=== PATIENT | female | born 1955 | race Hispanic/Latino ===

== ENCOUNTER → 2019-07-08 | Day surgery (SDC) | payer OTHER ==
[~2019-07-08] MED LIST: COLACE100 MG PO; FENTANYL CITRATE/PF 100MCG/2 ML INJ ONE; GLUCAGON FOR INJ 1 MG VIAL ONE; HYOSCYAMINE 0.125 MG TAB ONE; LEVAQUIN500 MG PO; MELOXICAM7.5 MG PO; MIDAZOLAM HCL 2 MG/2 ML VIAL ONE; PREDNISONE5 MG PO; PROPOFOL IV EMULSION 10 MG/ML 50 ML VIAL ONE; PYLERA CAPSULE1 EACH; TYLENOL WITH C1 EACH PO
--- OUTSIDE RECORDS SUMMARY | 2019-07-08 12:14 | XMS REPORT | Continuity of Care Document ---
Author Author [employer] Organization [employer] Address Unknown Phone Unavailable Care Team Providers Care Telephone Appointment Clerk Name Role Phone [employer] Unavailable Unavailable Problems Problem Status Onset Date Classification Date Reported Comments Source Unspecified abdominal pain 05/14/2019 05/17/2019 [facility] Calculus of ureter 05/14/2019 05/17/2019 [facility] LOWER ABDOMINAL PAIN Active 05/14/2019 [facility] Simple obesity (disorder) Active Problem 06/09/2019 [facility] Medications Medication Details Route Status Patient Instructions Ordering Provider Order Date Source Tamsulosin hydrochloride 0.4 MG Oral Capsule [Flomax] 0.4 mg=1 cap, PO, Daily, # 10 cap, 0 Refill(s), Pharmacy: [id number] Active 06/06/2019 [facility] Ketorolac Tromethamine 10 MG Oral Tablet 10 mg=1 tab, PO, TID, X 2 day, # 6 tab, 0 Refill(s), Pharmacy: [id number] No Longer Active 06/06/2019 [facility] Tamsulosin hydrochloride 0.4 MG Oral Capsule [Flomax] 0.4 mg=1 cap, PO, Daily, # 10 cap, 0 Refill(s) Active 05/15/2019 [facility] Motrin 600 mg oral tablet 600 mg=1 tab, PO, Q6H, PRN Pain, take with food, X 10 day, # 40 tab, 0 Refill(s) Active 05/15/2019 [facility] tramadol hydrochloride 50 MG Oral Tablet 50 mg=1 tab, PO, Q6H, PRN Pain, X 7 day, # 28 tab, 0 Refill(s) Active 05/15/2019 [facility] Ketorolac 30 mg, 1 mL, Route: IVP, Drug form: INJ, ONCE, Dosing Weight 73.005, kg, Priority: STAT, Start date: 05/14/19 22:26:00 CDT, Stop date: 05/14/19 22:26:00 CDT, 0Notes: (Same as:Toradol) IV bolus must be given >15 seconds. Give IM administration slowly and deeply into the muscle. Not for use > 4 days MEDICATION WASTE Product Size: 30 mg Product Wasted: ___ mg Inactive 05/15/2019 [facility] Allergies, Adverse Reactions, Alerts No Known Medication Allergies Immunizations No Data Provided for This Section Results Order Name Results Value Reference Range Date Interpretation Comments Source URINE AND STOOL POC UA Color Yellow *NA* (06/06/19 3:52 PM) Yellow 06/06/2019 [facility] URINE AND STOOL POC UA Turbidity Clear *NA* (06/06/19 3:52 PM) Clear 06/06/2019 [facility] URINE AND STOOL POC UA SG >=1.030 *ABN* (06/06/19 3:52 PM) <=1.030 06/06/2019 [facility] URINE AND STOOL POC UA pH 5.5 5.0 - 8.0 06/06/2019 [facility] URINE AND STOOL POC UA Prot Negative mg/dL Negative mg/dL 06/06/2019 [facility] URINE AND STOOL POC UA Glu Negative mg/dL Negative mg/dL 06/06/2019 [facility] URINE AND STOOL POC UA Ket Trace mg/dL Negative mg/dL 06/06/2019 [facility] URINE AND STOOL POC UA Bili Negative *NA* (06/06/19 3:52 PM) Negative 06/06/2019 [facility] URINE AND STOOL POC UA Bld Moderate *ABN* (06/06/19 3:52 PM) Negative 06/06/2019 [facility] URINE AND STOOL POC UA Uro 0.2 0.1 - 1.0 06/06/2019 [facility] URINE AND STOOL POC UA Nit Negative *NA* (06/06/19 3:52 PM) Negative 06/06/2019 [facility] URINE AND STOOL POC UA LeukEst Trace *ABN* (06/06/19 3:52 PM) Negative 06/06/2019 [facility] CHEM PANEL Lipase Lvl 101 17 - 393 05/15/2019 [facility] CHEM PANEL eGFR 63 05/15/2019 Result Comment: The eGFR is calculated using the CKD-EPI formula. In most young, healthy individuals the eGFR will be >90 mL/min/1.73m2. The eGFR declines with age. An eGFR of 60-89 may be normal in some populations, particularly the elderly, for whom the CKD-EPI formula has not been extensively validated. Use of the eGFR is not recommended in the following populations:

Individuals with unstable creatinine concentrations, including patients and those with serious co-morbid conditions.

Patients with extremes in muscle mass or diet.

The data above are obtained from the National Kidney Disease Education Program (NKDEP) which additionally recommends that when the eGFR is used in patients with extremes of body mass index for purposes of drug dosing, the eGFR should be multiplied by the estimated BMI. [place] CHEM PANEL Albumin Lvl 3.5 3.5 - 5.0 05/15/2019 [place] CHEM PANEL ALT 41 0 - 65 05/15/2019 [place] CHEM PANEL AST 22 0 - 37 05/15/2019 [place] CHEM PANEL Alk Phos 91 39 - 136 05/15/2019 [place] CHEM PANEL Bili Total 0.5 0.2 - 1.3 05/15/2019 [place] CHEM PANEL Total Protein 7.0 6.4 - 8.4 05/15/2019 [place] CHEM PANEL Calcium Lvl 9.0 8.5 - 10.5 05/15/2019 [place] CHEM PANEL BUN 24 7 - 22 05/15/2019 [place] CHEM PANEL Sodium Lvl 138 135 - 145 05/15/2019 [place] CHEM PANEL Creatinine Lvl 0.97 0.50 - 1.40 05/15/2019 [place] CHEM PANEL Potassium Lvl 4.1 3.5 - 5.1 05/15/2019 [place] CHEM PANEL Chloride Lvl 104 95 - 109 05/15/2019 [place] CHEM PANEL CO2 25 24 - 32 05/15/2019 [place] CHEM PANEL Glucose Lvl 135 70 - 99 05/15/2019 [place] CHEM PANEL A/G Ratio 1.0 0.7 - 1.6 05/15/2019 [place] CHEM PANEL Globulin 3.5 2.7 - 4.2 05/15/2019 [place] CHEM PANEL AGAP 13.1 10.0 - 20.0 05/15/2019 [place] CHEM PANEL B/C Ratio 25 6 - 25 05/15/2019 [place] HEMATOLOGY Lymphocytes 12.8 20.0 - 40.0 05/15/2019 [facility] HEMATOLOGY Segs 80.7 45.0 - 75.0 05/15/2019 [facility] HEMATOLOGY Monocytes 6.1 2.0 - 12.0 05/15/2019 [facility] HEMATOLOGY Eosinophils 0.1 0.0 - 4.0 05/15/2019 [facility] HEMATOLOGY Basophils 0.3 0.0 - 1.0 05/15/2019 [facility] HEMATOLOGY Neutrophils # 10.6 1.5 - 8.1 05/15/2019 [facility] HEMATOLOGY Lymphocytes # 1.7 1.0 - 5.5 05/15/2019 [facility] HEMATOLOGY Monocytes # 0.8 0.0 - 0.8 05/15/2019 [facility] HEMATOLOGY MCH 29.9 27.0 - 31.0 05/15/2019 [facility] HEMATOLOGY Hct 40.8 36.0 - 48.0 05/15/2019 [facility] MCV 90.3 80.0 - 98.0 05/15/2019 [facility] HEMATOLOGY Hgb 13.5 12.0 - 16.0 05/15/2019 [facility] HEMATOLOGY MCHC 33.1 32.0 - 36.0 05/15/2019 [facility] HEMATOLOGY RDW 13.5 11.5 - 14.5 05/15/2019 [facility] HEMATOLOGY MPV 7.2 7.4 - 10.4 05/15/2019 [facility] HEMATOLOGY Platelet 251 133 - 450 05/15/2019 [facility] RBC 4.51 4.20 - 5.40 05/15/2019 [facility] HEMATOLOGY WBC 13.1 3.7 - 10.4 05/15/2019 [facility] URINE AND STOOL UA Bacteria Occasional /HPF None Seen /HPF 05/15/2019 [facility] URINE AND STOOL UA RBC 33 0 - 2 05/15/2019 [facility] URINE AND STOOL UA Mucus Few /LPF None Seen /LPF 05/15/2019 [facility] URINE AND STOOL UA Leuk Est Negative (05/14/19 9:41 PM) Negative 05/15/2019 [facility] URINE AND STOOL UA Sq Epi Occasional /LPF Few /LPF 05/15/2019 [facility] URINE AND STOOL UA WBC 1 0 - 5 05/15/2019 [facility] URINE AND STOOL UA Nitrite Negative (05/14/19 9:41 PM) Negative 05/15/2019 [facility] URINE AND STOOL UA Urobilinogen <=1.0 mg/dL 0.1 - 1.0 05/15/2019 [facility] URINE AND STOOL UA Glucose Negative mg/dL Negative mg/dL 05/15/2019 [facility] URINE AND STOOL UA Ketones Trace mg/dL Negative mg/dL 05/15/2019 [facility] URINE AND STOOL UA Blood Small *ABN* (05/14/19 9:41 PM) Negative 05/15/2019 [facility] URINE AND STOOL UA Bili Negative *NA* (05/14/19 9:41 PM) Negative 05/15/2019 [facility] URINE AND STOOL UA Turbidity Clear (05/14/19 9:41 PM) Clear 05/15/2019 [facility] URINE AND STOOL UA Color Yellow *NA* (05/14/19 9:41 PM) Yellow 05/15/2019 [facility] URINE AND STOOL UA Spec Grav 1.016 <=1.030 05/15/2019 [facility] URINE AND STOOL UA pH 6.0 5.0 - 8.0 05/15/2019 [facility] URINE AND STOOL UA Protein Negative mg/dL Negative mg/dL 05/15/2019 [facility] Pathology Reports No Data Provided for This Section Diagnostic Reports Report Value Date Source Renal Stone CT CT SCAN OF THE ABDOMEN [<AND PELVIS>] WITHOUT CONTRAST. HX: Clinical Indication: Abdominal pain, acute - LLQ to L flank pain, eval stone vs diverticulitis; renal stone protocol; . Comparison: None Technique: Helical CT images were obtained from the domes the diaphragms to the symphysis pubis without the administration of oral or intravenous contrast. The lack of IV contrast lowers the sensitivity for diagnostic evaluation. CT imaging performed at this location utilizes radiation dose optimization techniques which include one or more of the following: -Automated exposure control -Adjustment of the mA and/or kV according to patient size -Use of iterative reconstruction technique CT Radiation Dose DLP 810.09 mGy-cm ABDOMEN AND PELVIS: Mild bibasilar atelectasis. Mild cardiomegaly. No pericardial effusion. Distended gallbladder. A small posterior hepatic dome cyst is present. The unenhanced liver, spleen, pancreas, and adrenals are normal in appearance. Grossly normal appendix. A 4.2 mm left UVJ calculus is present causing mild hydroureter, hydronephrosis and mild perinephric stranding. No definite renal calculi detected. The bladder is nondistended. Postoperative hysterectomy. Small fat-containing umbilical hernia. Mild descending diverticulosis. IMPRESSION: 1. A 4.2 mm left UVJ calculus is present causing mild hydroureter, hydronephrosis and mild perinephric stranding. No definite renal calculi detected. 2. Grossly normal appendix. 3. Postoperative hysterectomy. 4. Mild descending diverticulosis. SL: [id number] 05/14/[address] [facility] Consultation Notes No Data Provided for This Section Discharge Summaries No Data Provided for This Section History and Physicals No Data Provided for This Section Vital Signs Vital Sign Value Date Comments Source Systolic (mm Hg) 135 06/06/2019 [facility] Diastolic (mm Hg) 76 06/06/2019 [facility] Heart Rate 65 06/06/2019 [facility] Height 152.4 cm 06/06/2019 [facility] Weight 74.176 06/06/2019 [facility] BMI Calculated 31.94 06/06/2019 [facility] Temperature Oral (F) 97.8 F 05/15/2019 [facility] Respitory Rate 18 05/15/2019 [facility] Systolic (mm Hg) 144 05/15/2019 [facility] Diastolic (mm Hg) 68 05/15/2019 [facility] Heart Rate 61 05/15/2019 [facility] Weight 73.005 05/15/2019 [facility] Heart Rate 63 05/15/2019 [facility] Respitory Rate 19 05/15/2019 [facility] Temperature Oral (F) 97.5 F 05/15/2019 [facility] Systolic (mm Hg) 152 05/15/2019 [facility] Diastolic (mm Hg) 72 05/15/2019 [facility] Encounters Location Location Details Encounter Type Encounter Number Reason For Visit Attending Provider ADM Date DC Date Status Source [facility] Emergency [id number] Mary Oconnell 05/15/2019 05/15/2019 [facility] Outpatient [id number] Abdiel Nichols 06/06/2019 Active [facility] Out[facility] [id number] Abdiel Nichols 06/06/2019 06/07/2019 [facility] Procedures No Data Provided for This Section Assessment and Plan No Data Provided for This Section Plan of Care No Data Provided for This Section Social History Social History Date Source Social History TypeResponse Smoking Status Never smoker; Exposure to Tobacco Smoke None; Cigarette Smoking Last 365 Days No; Reg Smoking Cessation Counseling No entered on: 06/06/19 06/06/2019 [facility] Social History TypeResponse Smoking Status Never smoker; Exposure to Tobacco Smoke None; Cigarette Smoking Last 365 Days No; Reg Smoking Cessation Counseling No entered on: 05/14/19 05/15/2019 [facility] Family History No Data Provided for This Section Advance Directives No Data Provided for This Section Functional Status No Data Provided for This Section
--- OUTSIDE RECORDS SUMMARY | 2019-07-08 12:14 | XMS REPORT | Summary of Care ---
Author Author [facility] Organization [facility] Address Unknown Phone Unavailable Encounter [facility] [place](FIN) [id number] Date(s): 06/06/19 - 06/06/19 [facility] [id number] [address] [place] [address]- [phone] Discharge Disposition: Home or Self Care Attending Physician: Abdiel Nichols MD Vital Signs Most recent to 1 oldest [Reference Range]: Height 152.4 cm (06/06/19 4:28 PM) Blood Pressure 135/76 mmHg [90-140/60-90 mmHg] (06/06/19 4:28 PM) Peripheral Pulse 65 bpm Rate [60-100 bpm] (06/06/19 4:28 PM) Weight 74.176 kg (06/06/19 4:28 PM) Body Mass Index 31.94 m2 (06/06/19 4:28 PM) Problem List Condition Effective Dates Status Health Status Informant Simple Active obesity(Confirmed) Allergies, Adverse Reactions, Alerts No Known Allergies Medications Flomax 0.4 mg oral capsule 0.4 mg=1 cap, PO, Daily, # 10 cap, 0 Refill(s), Pharmacy: [facility] Start Date: 06/06/19 Stop Date: 06/16/19 Status: Ordered ketOROLAC 10 mg oral tablet 10 mg=1 tab, PO, TID, X 2 day, # 6 tab, 0 Refill(s), Pharmacy: [id number] Start Date: 06/06/19 Stop Date: 06/08/19 Status: Completed Results Most recent to 1 oldest [Reference Range]: POC UA Bili Negative [Negative] *NA* (06/06/19 3:52 PM) POC UA Bld Moderate [Negative] *ABN* (06/06/19 3:52 PM) POC UA Color Yellow [Yellow] *NA* (06/06/19 3:52 PM) POC UA Glu [Negative Negative mg/dL mg/dL] *NA* (06/06/19 3:52 PM) POC UA Ket [Negative Trace mg/dL mg/dL] *ABN* (06/06/19 3:52 PM) POC UA LeukEst Trace [Negative] *ABN* (06/06/19 3:52 PM) POC UA Nit Negative [Negative] *NA* (06/06/19 3:52 PM) POC UA pH [5.0-8.0] 5.5 (06/06/19 3:52 PM) POC UA Prot Negative mg/dL [Negative mg/dL] *NA* (06/06/19 3:52 PM) POC UA SG [<=1.030] >=1.030 *ABN* (06/06/19 3:52 PM) POC UA Turbidity Clear [Clear] *NA* (06/06/19 3:52 PM) POC UA Uro [0.1-1.0 0.2 EU/dL EU/dL] (06/06/19 3:52 PM) Immunizations No data available for this section Procedures No data available for this section Social History Social History Type Response Smoking Status Never smoker; Exposure to Tobacco Smoke None; Cigarette Smoking Last 365 Days No; Reg Smoking Cessation Counseling No entered on: 06/06/19 Assessment and Plan No data available for this section
--- OUTSIDE RECORDS SUMMARY | 2019-07-08 12:14 | XMS REPORT | Summary of Care ---
Author Author [facility] Organization [facility] Address Unknown Phone Unavailable Encounter [facility] [place](FIN) [id number] Date(s): 05/14/19 - 05/15/[address] [facility] [address] [place] [address]- [phone] Encounter Diagnosis Acute abdominal pain in left flank (Discharge Diagnosis) - 05/14/19 Ureterolithiasis (Discharge Diagnosis) - 05/14/19 Discharge Disposition: Home or Self Care Attending Physician: Mary Oconnell MD Vital Signs Most recent to 1 2 oldest [Reference Range]: Temperature Oral 97.8 DegF 97.5 DegF [96.4-99.1 DegF] (05/14/19 11:43 PM) (05/14/19 9:01 PM) Blood Pressure 144/68 mmHg 152/72 mmHg [90-140/60-90 mmHg] *HI* *HI* (05/14/19 11:43 PM) (05/14/19 9:01 PM) Respiratory Rate 18 BRMIN 19 BRMIN [14-20 BRMIN] (05/14/19 11:43 PM) (05/14/19 9:01 PM) Peripheral Pulse 61 bpm 63 bpm Rate [60-100 bpm] (05/14/19 11:43 PM) (05/14/19 9:01 PM) Weight 73.005 kg (05/14/19 9:01 PM) Problem List No data available for this section Allergies, Adverse Reactions, Alerts No Known Allergies Medications Flomax 0.4 mg oral capsule 0.4 mg=1 cap, PO, Daily, # 10 cap, 0 Refill(s) Start Date: 05/14/19 Stop Date: 05/24/19 Status: Ordered ketOROLAC 30 mg, 1 mL, Route: IVP, Drug form: INJ, ONCE, Dosing Weight 73.005, kg, Priorit y: STAT, Start date: 05/14/19 22:26:00 CDT, Stop date: 05/14/19 22:26:00 CDT, 0 Notes: (Same as:Toradol) IV bolus must be given >15 seconds. Give IM administration slowly and deeply into the muscle.Not for use > 4 days MEDICATION WASTE Product Size: 30 mgProduct Wasted: ___ mg Start Date: 05/14/19 Stop Date: 05/14/19 Status: Completed Motrin 600 mg oral tablet 600 mg=1 tab, PO, Q6H, PRN Pain, take with food, X 10 day, # 40 tab, 0 Refill(s) Start Date: 05/14/19 Stop Date: 05/24/19 Status: Ordered tramadol 50 mg oral tablet 50 mg=1 tab, PO, Q6H, PRN Pain, X 7 day, # 28 tab, 0 Refill(s) Start Date: 05/14/19 Stop Date: 05/21/19 Status: Ordered Results Most recent to 1 oldest [Reference Range]: Neutrophils # 10.6 K/CMM [1.5-8.1 K/CMM] *HI* (05/14/19 9:41 PM) Lymphocytes # 1.7 K/CMM [1.0-5.5 K/CMM] (05/14/19 9:41 PM) Monocytes # [0.0-0.8 0.8 K/CMM K/CMM] (05/14/19 9:41 PM) eGFR 63 mL/min/1.73m2 1 *NA* (05/14/19 9:41 PM) A/G Ratio [0.7-1.6] 1.0 (05/14/19 9:41 PM) Albumin Lvl [3.5-5.0 3.5 g/dL g/dL] (05/14/19 9:41 PM) Alk Phos [39-136 91 unit/L unit/L] (05/14/19 9:41 PM) ALT [0-65 unit/L] 41 unit/L (05/14/19 9:41 PM) AGAP [10.0-20.0 13.1 mEq/L mEq/L] (05/14/19 9:41 PM) AST [0-37 unit/L] 22 unit/L (05/14/19 9:41 PM) B/C Ratio [6-25] 25 (05/14/19:41 PM) Basophils [0.0-1.0 0.3 % %] (05/14/19 9:41 PM) BUN [7-22 mg/dL] 24 mg/dL *HI* (05/14/1941 PM) Calcium Lvl 9.0 mg/dL [8.5-10.5 mg/dL] (05/14/19:41 PM) Chloride Lvl [95-109 104 mEq/L mEq/L] (05/14/19:41 PM) CO2 [24-32 mEq/L] 25 mEq/L (05/14/19:41 PM) Creatinine Lvl 0.97 mg/dL [0.50-1.40 mg/dL] (05/14/19:41 PM) Eosinophils [0.0-4.0 0.1 % %] (05/14/19:41 PM) Globulin [2.7-4.2 3.5 g/dL g/dL] (05/14/19:41 PM) Glucose Lvl [70-99 135 mg/dL mg/dL] *HI* (05/14/19:41 PM) Hct [36.0-48.0 %] 40.8 % (05/14/19:41 PM) Hgb [12.0-16.0 g/dL] 13.5 g/dL (05/14/19:41 PM) Potassium Lvl 4.1 mEq/L [3.5-5.1 mEq/L] (05/14/19:41 PM) Lipase Lvl [73-393 101 unit/L unit/L] (05/14/19:41 PM) Lymphocytes 12.8 % [20.0-40.0 %] *LOW* (05/14/19:41 PM) MCH [27.0-31.0 pg] 29.9 pg (05/14/19:41 PM) MCHC [32.0-36.0 33.1 g/dL g/dL] (05/14/19 9:41 PM) MCV [80.0-98.0 fL] 90.3 fL (05/14/19 9:41 PM) Monocytes [2.0-12.0 6.1 % %] (05/14/19 9:41 PM) MPV [7.4-10.4 fL] 7.2 fL *LOW* (05/14/19 9:41 PM) Sodium Lvl [135-145 138 mEq/L mEq/L] (05/14/19 9:41 PM) Platelet [133-450 251 K/CMM K/CMM] (05/14/19 9:41 PM) Segs [45.0-75.0 %] 80.7 % *HI* (05/14/19 9:41 PM) Total Protein 7.0 g/dL [6.4-8.4 g/dL] (05/14/19 9:41 PM) RBC [4.20-5.40 4.51 M/CMM M/CMM] (05/14/19 9:41 PM) RDW [11.5-14.5 %] 13.5 % (05/14/19 9:41 PM) Bili Total [0.2-1.3 0.5 mg/dL mg/dL] (05/14/19 9:41 PM) UA Bacteria [None Occasional /HPF Seen /HPF] *NA* (05/14/19 9:41 PM) UA Bili [Negative] Negative *NA* (05/14/19 9:41 PM) UA Blood [Negative] Small *ABN* (05/14/19 9:41 PM) UA Color [Yellow] Yellow *NA* (05/14/19 9:41 PM) UA Glucose [Negative Negative mg/dL mg/dL] *NA* (05/14/19 9:41 PM) UA Ketones [Negative Trace mg/dL mg/dL] *ABN* (05/14/19 9:41 PM) UA Leuk Est Negative [Negative] (05/14/19 9:41 PM) UA Mucus [None Seen Few /LPF /LPF] *NA* (05/14/19 9:41 PM) UA Nitrite Negative [Negative] (05/14/19 9:41 PM) UA pH [5.0-8.0] 6.0 (05/14/19 9:41 PM) UA Protein [Negative Negative mg/dL mg/dL] (05/14/19 9:41 PM) UA RBC [0-2 /HPF] 33 /HPF *HI* (05/14/19 9:41 PM) UA Spec Grav 1.016 [<=1.030] (05/14/19 9:41 PM) UA Sq Epi [Few /LPF] Occasional /LPF *NA* (05/14/19 9:41 PM) UA Turbidity [Clear] Clear (05/14/19 9:41 PM) UA Urobilinogen <=1.0 mg/dL [0.1-1.0 mg/dL] *NA* (05/14/19 9:41 PM) UA WBC [0-5 /HPF] 1 /HPF (05/14/19 9:41 PM) WBC [3.7-10.4 K/CMM] 13.1 K/CMM *HI* (05/14/19 9:41 PM) 1Result Comment: The eGFR is calculated using the [...] from the National Kidney Disease Education Program ( NKDEP) which additionally recommends that when the eGFR is used in patients with extremes of body mass index for purposes of drug dosing, the eGFR should be mul tiplied by the estimated BMI. Immunizations No data available for this section Procedures No data available for this section Social History Social History Type Response Smoking Status Never smoker; Exposure to Tobacco Smoke None; Cigarette Smoking Last 365 Days No; Reg Smoking Cessation Counseling No entered on: 05/14/19 Assessment and Plan No data available for this section
[2019-07-08 15:40] VITALS: BP 142/72
--- NOTE | 2019-07-08 21:33 | Operative Report ---
DATE OF PROCEDURE: 07/08/2019 SURGEON: Shar Harrell MD PROCEDURE: EGD and colonoscopy. INDICATIONS FOR EGD: Acid reflux. INDICATIONS FOR COLONOSCOPY: Colorectal cancer screening. MEDICATIONS: The patient was done under MAC. Please see Anesthesiologist's note. PROCEDURE IN DETAIL: With the patient in left lateral decubitus position, flexible fiberoptic Olympus gastroscope was introduced into the esophagus under direct visualization without any difficulty. There was cluster of nodules noted just below the upper esophageal sphincter and biopsies were obtained. The mucosa overlying the distal esophagus revealed some patchy erythema and the scope was then advanced with ease into the stomach. Mucosa overlying the antrum and the body revealed some patchy erythema, low-grade to moderate edema, and biopsies were obtained and sent to stain for H. pylori. The pylorus was of normal contour and shape, was intubated with ease, and the scope was advanced all the way to the second portion of the duodenum. Biopsies were obtained from the second portion as well as the duodenal bulb to rule out sprue. The scope was then withdrawn back into the stomach and retroflexed. There was some submucosal nodularity noted in the fundus and biopsies were obtained. The scope was then straightened out it was subsequently withdrawn. The patient tolerated procedure well. IMPRESSION: 1. Cluster of nodules just below the upper esophageal sphincter biopsied. 2. Distal esophagitis. 3. Gastritis, biopsied. 4. Nodular raised submucosal area fundus, biopsied. 5. Rule out sprue. PLAN: Follow up histology. Continue Protonix 40 mg one p.o. q.a.m. a.c. Continue Pylera one capsule q.i.d. after meals and at bedtime. The patient was then turned around and after adequate lubrication of the anal canal, a flexible fiberoptic Olympus colonoscope was inserted into the rectum with ease and advanced all the way to the cecum. Prep overall was suboptimal, but visualization was fair. One minute polyp was removed per the cold biopsy forceps from the cecum. The scope was then withdrawn slowly whatever was visualized at the mucosa overlying the ascending and the transverse appeared to be within normal limits. Two polyps were removed per the cold biopsy forceps from the descending colon. Diverticular disease was noted in the descending and the sigmoid colon. One polyp was removed per hot biopsy forceps from the sigmoid colon. One polyp was removed per the hot biopsy forceps from the rectum. The scope was then retroflexed into the distal rectum and small internal hemorrhoids were noted, none of which was actively bleeding. The scope was then straightened out. It was subsequently withdrawn. The patient tolerated the procedure well. IMPRESSION: 1. Cecal polyp removed per the cold biopsy forceps. 2. Descending colon polyps x2, removed per the cold biopsy forceps. 3. Diverticulosis. 4. Sigmoid colon polyp, hot biopsied. 5. Rectal polyp, hot biopsied. 6. Internal hemorrhoids, none actively bleeding. PLAN: Initiate high-fiber low-fat diet. Initiate high-fiber supplement. The patient will need a followup colonoscopy in 3 years. Shar Harrell MD [facility]/DARIEL /[id number] cc: Blue Kelly MD
== END | disposition home or self-care (01) ==
LOC: OR 11:15
PROVIDERS: ATTEND Internal Medicine Gastroenterology
DX: A04.8 Other specified bacterial intestinal infections (principal); K21.9 Gastro-esophageal reflux disease without esophagitis; K20.9 Esophagitis, unspecified; K29.70 Gastritis, unspecified, without bleeding; K63.5 Polyp of colon; K57.30 Diverticulosis of large intestine without perforation or abscess without bleeding; K62.1 Rectal polyp; K64.8 Other hemorrhoids; Z88.0 Allergy status to penicillin; Z01.810 Encounter for preprocedural cardiovascular examination; B96.81 Helicobacter pylori [H. pylori] as the cause of diseases classified elsewhere; R12 Heartburn; K59.09 Other constipation; Z68.32 Body mass index [BMI] 32.0-32.9, adult; K29.50 Unspecified chronic gastritis without bleeding
CPT/HCPCS: 43239; 45380; 45384; 93005; J1610; J2250; J2704; J3010